=== PATIENT | male | born 1990 | race Caucasian/White ===

== ENCOUNTER → 2021-01-26 14:40 | Outpatient (CLI) | payer OTHER, SELFPAY | PROVIDERS: Visit Provider Nurse Practitioner Family | DX: Z20.822 Contact with and (suspected) exposure to COVID-19 (principal); U07.1 COVID-19 | CPT/HCPCS: U0003 ==

== ENCOUNTER → 2021-07-04 11:50 | Outpatient (CLI) | payer OTHER, SELFPAY ==
[2021-07-05 09:31] LABS: Covid-19 Nasal PCR Sendout Lex NOT DETECTED
== END ==
PROVIDERS: Visit Provider Nurse Practitioner
DX: Z20.822 Contact with and (suspected) exposure to COVID-19 (principal)
CPT/HCPCS: C9803; U0004; U0005

== ENCOUNTER 2022-01-26 15:07 | Emergency (ER) | payer OTHER, SELFPAY ==
[2022-01-26 15:51] VITALS: BP 142/96; PULSE 87; RESP 15; TEMP 36.9; O2SAT 97; BMI 28.8
--- NOTE | 2022-01-26 16:13 | EXP.UTC ---
Discharge Plan Disposition Patient Disposition: Home, Self-Care Condition: Good Prescriptions Prescriptions: New azithromycin [Zithromax Z-Gabriel] 250 mg tablet See Rx Instructions .ROUTE .COMPLEX Qty: 6 0RF Rx Instructions: For 250 mg dose pack: take 500 mg today (day 1), then 250 mg for 4 days (days 2-5) prednisone 20 mg tablet 20 mg PO BID Qty: 10 0RF albuterol sulfate 90 mcg/actuation HFA aerosol inhaler 2 inh inhalation Q6H PRN (Reason: shortness of breath or wheezing) Qty: 8.5 0RF dextromethorphan-guaifenesin [Mucinex DM] 60-1,200 mg tablet extended release 12 hr 1 tab PO DAILY Qty: 20 0RF No Action albuterol sulfate 90 mcg/actuation HFA aerosol inhaler 2 puff INHALATION Q6H PRN (Reason: bronchitis) 7 Days Qty: 6.7 0RF Rx Instructions: administer with spacer Referrals Follow up/Referrals: Provider,Referral, MD [Primary Care Provider] - See instructions Activity Restrictions/Add. Instructions Additional Instructions/Restrictions: You have been tested for COVID19. Please isolate yourself as if you are positive until test results received. Current CDC guidelines are quarantine X 5 days from onset of symptoms, with an additional 5 days of mask wearing at all times. If you have difficulty breathing, signs of dehydration, etc please seek treatment at ER. Clinical Impressions Clinical Impression: Exposure to 2019 novel coronavirus Stand Alone Forms Stand Alone Forms: Work/School Release Discharge ED Provider[place] Kindra Ballesteros [facility] [place] Stated complaint: covid test,LANE Fever Mode of Arrival: Ambulatory Source of Information: Patient Time Seen by Provider: 01/26/22 16:23 Description of Symptoms (Recalled from Triage Doc. by RN): pt comes in for covid test. symptoms began 2 days ago and include headache, shortness of breath, congestion. HEENT Symptoms (Recalled from RN notes): Yes Resp Symptoms (Recalled from RN notes): Yes Skin Symptoms (Recalled from RN notes): No MS Symptoms (Recalled from RN notes): No Functional Status (Recalled from RN notes): n/a History of Present Illness Provider Complaint: Headache, shortness of breath, chest tightness, cough, congestions X 2 days. Fever last night. No vomiting or diarrhea. Onset (ago): day(s) Location: chest Severity: moderate Relieving factors: none Exacerbating factors: none Associated symptoms: cough, fever/chills, headaches and malaise Treatments prior to arrival: NSAID Related Data Previous Rx's Medication Instructions Recorded albuterol sulfate 90 mcg/actuation 2 puff inhalation Q6H PRN 11/10/18 aerosol inhaler bronchitis 7 days #6.7 grams albuterol sulfate 90 mcg/actuation 2 inh inhalation Q6H PRN shortness 01/26/22 aerosol inhaler of breath or wheezing #8.5 grams azithromycin 250 mg tablet See Rx Instructions PO .COMPLEX #6 01/26/22 (Zithromax Z-Gabriel) tabs dextromethorphan-guaifenesin ER 60 1 tab PO DAILY #20 tabs 01/26/22 mg-1,200 mg tab,extend release,12hr (Mucinex DM) prednisone 20 mg tablet 20 mg PO BID #10 tabs 01/26/22 Allergies Allergy/AdvReac Type Severity Reaction Status Date / Time No Known Allergies Allergy Verified 01/26/22 15:41 Worker's Comp Is this a Worker's Comp case?: No PFSH PFSH Social History Smoking Status: Former smoker alcohol intake: never substance use type: denies use current occupational status: employed household members: family housing: house ROS Obtained: Yes All systems reviewed & no additional complaints except as documented Constitutional Constitutional: Reports fever(s) and Reports headache(s) ENT Ears, Nose, Mouth, and Throat: Reports headache(s) and Reports nasal congestion Respiratory Respiratory: Reports chest congestion and Reports cough Neurologic Neurologic: Reports headache(s) Physical Exam General General appearance: alert and in no apparent distress Head Head exam
[2022-01-26 16:38] VITALS: BP 142/96; PULSE 87; RESP 15; TEMP 36.9
== END 2022-01-26 16:39 | disposition home or self-care (01) ==
PROVIDERS: Emergency Provider Physician Assistant
DX: Z20.822 Contact with and (suspected) exposure to COVID-19 (principal); R50.9 Fever, unspecified; R51.9 Headache, unspecified; R06.02 Shortness of breath; R09.89 Other specified symptoms and signs involving the circulatory and respiratory systems; R05.9 Cough, unspecified
CPT/HCPCS: 99212; C9803; G0463; U0003; U0005

== ENCOUNTER → 2022-12-26 23:18 | Outpatient (CLI) | payer OTHER, SELFPAY ==
[2022-12-26 18:37] LABS: Chloride 102 mmol/L (98-107); Potassium 4.2 mmoL/L (3.5-5.1); Sodium 139 mmol/L (136-145)
[2022-12-26 18:39] LABS: Alanine Aminotransferase 54 U/L (12-78); Aspartate Amino Transferase 36 U/L (17-59); Blood Urea Nitrogen 17 mg/dl (9-20); Estimated Glomerular Filt Rate 97 ml/min (>60); GFR (African American) 118 ML/MIN (>60)
[2022-12-26 18:40] LABS: Albumin Level 4.8 g/dl (3.5-5.0); Albumin/Globulin Ratio 1.7 (1.1-1.8); Alkaline Phosphatase 67 U/L (38-126); Anion Gap 11.2 mEq/L (5-15); Basophils % 0.7 % (0.1-2.0); Bilirubin,Total 0.8 mg/dl (0.2-1.3); Calcium 10.3 mg/dl (8.4-10.2); Carbon Dioxide 30 mmol/L (22.0-30.0); Cholesterol 222 mg/dl (140-200); Eosinophils # 0.2 K/mm3 (0.0-0.4); Eosinophils % 3.1 % (0.1-12.0); Globulin 2.9 g/dL (1.3-3.2); Glucose 86 mg/dl (74-100); HDL Cholesterol 44 mg/dl (40-60); Hematocrit 48.7 % (42.0-52.0); Hemoglobin 15.5 g/dL (14.1-18.0); Lymphocytes # 1.7 K/mm3 (0.7-4.5); Lymphocytes % 29.1 % (10-50); Mean Corpuscular HGB Conc 31.8 g/dL (31.8-35.4); Mean Corpuscular Hemoglobin 29.3 pg (27.0-31.2); Mean Corpuscular Volume 91.9 fl (80-94); Mean Platelet Volume 8.5 fl (7.4-10.4); Monocytes # 0.4 K/mm3 (0.1-1.0); Monocytes % 7.4 % (1.7-9.3); Neutrophils # 3.5 K/mm3 (1.8-7.8); Neutrophils % 59.7 % (37.0-80.0); Platelet Count 315 K/mm3 (142-424); Red Cell Distribution Width 12.9 % (11.5-17.5); Total Protein,Serum 7.7 g/dl (6.3-8.2); Triglycerides 236 mg/dl (30-150); VLDL Cholesterol 47 mg/dL (0-40); White Blood Count 5.8 K/mm3 (4.8-10.8)
[2022-12-26 18:51] LABS: Direct LDL Cholesterol 124.21 mg/dL (100-129)
[2022-12-26 18:58] LABS: 25-OH Vitamin D, Total 24.9 ng/mL (30-100)
[2022-12-26 19:10] LABS: Thyroid Stimulating Hormone 0.91 uIU/mL (0.465-4.68)
== END ==
LOC: LAB.DROPOF 23:18
PROVIDERS: PCP Nurse Practitioner Family; Visit Provider Nurse Practitioner Family
DX: R07.9 Chest pain, unspecified (principal); R06.02 Shortness of breath; E55.9 Vitamin D deficiency, unspecified; Z79.899 Other long term (current) drug therapy
CPT/HCPCS: 80053; 80061; 82306; 84443; 85025

== ENCOUNTER 2023-10-08 21:51 | Emergency (ER) | payer OTHER, SELFPAY ==
[2023-10-08 21:52] VITALS: BP 158/98; PULSE 92; RESP 18; TEMP 36.8; O2SAT 98; BMI 28.7
--- NOTE | 2023-10-08 22:11 | ECG_ITS ---
APPROVED REPORT Exam: Resting ECG HR:86 bpm ECG Measurements Heart Rate 86 AXES DE 136 P 27 QRSd 96 QRS 62 QT 344 T 40 QTc 388 Conclusion SINUS RHYTHM Electronically signed by : SALVATORE HERRERA, 10/08/2023 23:17:32
[2023-10-08 22:30] VITALS: BP 131/71; PULSE 94; RESP 21; O2SAT 97
--- NOTE | 2023-10-08 22:33 | ED_ITS ---
Discharge Plan Disposition Patient Disposition: Home, Self-Care Condition: Good Prescriptions Prescriptions: No Action Vraylar 1.5 mg capsule 1.5 mg PO DAILY Qty: 30 2RF Referrals Follow up/Referrals: Alec Pacheco APRN [Primary Care Provider] - See instructions Garret Brown MD [Staff Physician] - See instructions Activity Restrictions/Add. Instructions Additional Instructions/Restrictions: Please follow-up with your PCP as needed. I referred you to cardiology although he did not have a serious or life-threatening condition today further evaluation as an outpatient is certainly appropriate given your concerns. Return to the ER as needed for any worsening signs or symptoms. Clinical Impressions Clinical Impression: Isolated premature ventricular contractions, RADHA (generalized anxiety disorder) Discharge ED Provider: Fransisco Orr General Adult HPI <JOSE Lopez - Last Filed: 10/08/23 23:20> General Chief complaint: Arrhythmia/Palpitations Stated complaint: heart beat fluxuating Time Seen by Provider: 10/08/23 22:33 Mode of Arrival: Ambulatory Source of Information: Patient Limitations: No Limitations Description of Symptoms (Recalled from ER Triage Doc. by RN): Patient reports chest pressure that feels like a gas bubble that started sometime today. He's unable to specify a time of onset. Patient reports he can lift his right arm and cause it to happen on demand. He states that he feels as though his heart stops a moment, then beats very hard . Patient reports that he sometimes has palpitations because he has really bad anxiety . Patient denies nausea, vomiting, lightheadedness. History of Present Illness HPI narrative: Patient presents for evaluation of palpitations. Patient states that he was taking a nap on the couch awoke and sat up and felt a palpitation in his chest and then strain sensation is never felt before. He felt like it was a thud patient has had several episodes since that he states is possible related to raising his arm or standing up. He denies chest pain fever chills hemoptysis hematochezia melena nausea vomit diarrhea. Patient has a history of anxiety and is slightly triggered by the events of the evening. Related Data Previous Rx's Medication Instructions Recorded cariprazine 1.5 mg capsule 1.5 mg PO DAILY #30 caps 12/26/22 (Vraylar) Allergies Allergy/AdvReac Type Severity Reaction Status Date / Time No Known Allergies Allergy Verified 01/02/23 13:12 PFSH <JOSE Lopez - Last Filed: 10/08/23 23:20> [facility] Disclaimer: The information contained in this section may have been updated after the patient was seen, as this information can be updated by other users. Medical History (Updated 10/08/23 @ 23:18 by JOSE Lopez) Abnormal electrocardiogram [ECG] [EKG] Lightheaded Palpitations Social History Smoking Status: Former smoker tobacco type: cigarettes packs per day: 1 alcohol intake: never substance use type: denies use current occupational status: employed Travel in the last 8 weeks: None household members: family housing: house <JOSE Lopez - Last Filed: 10/08/23 23:20> ROS Obtained: Yes Systems reviewed as appropriate & no additional complaints except as documented Physical Exam <JOSE Lopez - Last Filed: 10/08/23 23:20> General General appearance: alert and in no apparent distress Respiratory Respiratory exam: Present normal lung sounds bilaterally Cardiovascular Cardiovascular exam: Present regular rate, normal rhythm, normal heart sounds, +S1 and +S2 Extremities Exam Extremities exam: Present normal inspection Back Exam Back exam: Present normal inspection Neurological Exam Neurological exam: Present alert, oriented X3 and CN II-XII intact Psychiatric Psychiatric exam: Present normal affect and normal mood Skin Skin exam: Present warm, dry and normal color Medical Decision Making <JOSE Lopez - Last Filed: 10/08/23 23:20> Medical Records Medical records reviewed: Yes I reviewed the patient's medical records. Zach Inquiry Pt receiving controlled substance: No Vital Signs: 10/08/23 21:52 10/08/23 22:30 10/08/23 23:00 Temperature 98.3 F Temperature Source Oral Pulse Rate 94 H 93 H Pulse Rate [Left Radial] 92 H Respiratory Rate 18 21 20 Blood Pressure 131/71 128/84 Blood Pressure [Right Arm] 158/98 H Blood Pressure Mean 91 96 Blood Pressure Mean [Right Arm] 118 Blood Pressure Source [Right Arm] Automatic Cuff Blood Pressure Position [Right Arm] Sitting 02 Sat by Pulse Oximetry 98 97 95 Oxygen Delivery Method Room Air Room Air Room Air 10/08/23 23:28 Temperature 98.3 F Temperature Source Oral Pulse Rate 81 Pulse Rate [Left Radial] Respiratory Rate 20 Blood Pressure 121/76 Blood Pressure [Right Arm] Blood Pressure Mean Blood Pressure Mean [Right Arm] Blood Pressure Source [Right Arm] Blood Pressure Position [Right Arm] 02 Sat by Pulse Oximetry Oxygen Delivery Method Lab Data Lab results reviewed: Yes I reviewed the patient's lab results. Lab Results 10/08/23 22:34: WBC 6.8, RBC 4.83, Hgb 14.7, Hct 42.9, MCV 88.7, MCH 30.4, MCHC 34.2, RDW 13.8, Plt Count 305, MPV 7.6, Neut % (Auto) 55.7, Lymph % (Auto) 32.3, [place] % (Auto) 7.7, Eos % (Auto) 2.9, Baso % (Auto) 1.5, Neut # (Auto) 3.8, Lymph # (Auto) 2.2, [place] # (Auto) 0.5, Eos # (Auto) 0.2, Baso # (Auto) 0.1, Sodium 139, Potassium 3.7, Chloride 104, Carbon Dioxide 29, Anion Gap 9.7, BUN 21 H, Creatinine 1.10, Estimated Creat Clear 121, Estimated GFR 77, Est GFR ( Amer) 93, Glucose 97, Calcium 9.5, Magnesium 2.0, Total Bilirubin 0.7, AST 40, A LT 80 H, Alkaline Phosphatase 73, Troponin I < 0.01, Total Protein 7.0, Albumin 4.4, Globulin 2.6, Albumin/Globulin Ratio 1.7 10/08/23 22:34 10/08/23 22:34 Orders (Tests/Meds): ED MEDICATIONS Discontinued Medications Generic Name Dose Route Start Last Admin Trade Name Freq PRN Reason Stop Dose Admin Hydroxyzine Pamoate 50 mg 10/08/23 23:15 10/08/23 23:25 Hydroxyzine Pamoate 25mg Capsule PO 10/08/23 23:16 50 mg ONCE ONE Administration Magnesium Sulfate 2 gm in 50 mls @ 50 mls/hr 10/08/23 22:40 10/08/23 23:04 Magnesium Sulfate 2gm/50ml Premix IV 10/08/23 23:39 Not Given ONCE ONE ORDERS Category Date Time Status Chest XR -- portable [XR chest portable] Stat Exams 10/08/23 22:41 Taken CBC w/Auto Diff [Complete Blood Count Auto Diff] Stat Lab 10/08/23 22:34 Completed Comprehensive Metabolic Panel Stat Lab 10/08/23 22:34 Completed Magnesium Stat Lab 10/08/23 22:34 Completed Troponin I Stat Lab 10/08/23 22:34 Completed HEART Score History (anamnesis): Slightly suspicious ECG: Normal Age: <45 years Risk factors: 1-2 risk factors Medical Decision Narrative: In summary patient is a 33-year-old female who presents to the emergency department for evaluation of palpitation. Patient is hemodynamically stable upon arrival, afebrile. Physical exam is unremarkable and nonfocal.. Differential diagnosis includes arrhythmia versus PVC versus anxiety versus gastritis versus ACS etc. Initial workup will be conducted with hematologic labs twelve-lead EKG chest x-ray. Initial interventions include Toradol Tylenol Vistaril. Initial workup reviewed by me that shows his hematologic labs are nonactionable and chest x-ray shows no acute process.. Upon repeat evaluation was able to reproduce what the patient was feeling while on the bedside monitor which showed 1 or 2 isolated PVCs that were nonsustained.. Given this appropriate for discharge with referral to cardiology in outpatient for further possible workup although this seems benign patient is supportive of the idea. I have also highly encouraged the patient to consider establishing care with a mental health provider for both medication therapy as well as talk therapy. Patient will consider. <Fransisco Orr MD - Last Filed: 10/08/23 23:41> Vital Signs: 10/08/23 21:52 10/08/23 22:30 10/08/23 23:00 Temperature 98.3 F Temperature Source Oral Pulse Rate 94 H 93 H Pulse Rate [Left Radial] 92 H Respiratory Rate 18 21 20 Blood Pressure 131/71 128/84 Blood Pressure [Right Arm] 158/98 H Blood Pressure Mean 91 96 Blood Pressure Mean [Right Arm] 118 Blood Pressure Source [Right Arm] Automatic Cuff Blood Pressure Position [Right Arm] Sitting 02 Sat by Pulse Oximetry 98 97 95 Oxygen Delivery Method Room Air Room Air Room Air 10/08/23 23:28 Temperature 98.3 F Temperature Source Oral Pulse Rate 81 Pulse Rate [Left Radial] Respiratory Rate 20 Blood Pressure 121/76 Blood Pressure [Right Arm] Blood Pressure Mean Blood Pressure Mean [Right Arm] Blood Pressure Source [Right Arm] Blood Pressure Position [Right Arm] 02 Sat by Pulse Oximetry Oxygen Delivery Method Lab Data Lab Results 10/08/23 22:34: WBC 6.8, RBC 4.83, Hgb 14.7, Hct 42.9, MCV 88.7, MCH 30.4, MCHC 34.2, RDW 13.8, Plt Count 305, MPV 7.6, Neut % (Auto) 55.7, Lymph % (Auto) 32.3, [place] % (Auto) 7.7, Eos % (Auto) 2.9, Baso % (Auto) 1.5, Neut # (Auto) 3.8, Lymph # (Auto) 2.2, [place] # (Auto) 0.5, Eos # (Auto) 0.2, Baso # (Auto) 0.1, Sodium 139, Potassium 3.7, Chloride 104, Carbon Dioxide 29, Anion Gap 9.7, BUN 21 H, Creatinine 1.10, Estimated Creat Clear 121, Estimated GFR 77, Est GFR ( Amer) 93, Glucose 97, Calcium 9.5, Magnesium 2.0, Total Bilirubin 0.7, AST 40, A LT 80 H, Alkaline Phosphatase 73, Troponin I < 0.01, Total Protein 7.0, Albumin 4.4, Globulin 2.6, Albumin/Globulin Ratio 1.7 Orders (Tests/Meds): ED MEDICATIONS Discontinued Medications Generic Name Dose Route Start Last Admin Trade Name Freq PRN Reason Stop Dose Admin Hydroxyzine Pamoate 50 mg 10/08/23 23:15 10/08/23 23:25 Hydroxyzine Pamoate 25mg Capsule PO 10/08/23 23:16 50 mg ONCE ONE Administration Magnesium Sulfate 2 gm in 50 mls @ 50 mls/hr 10/08/23 22:40 10/08/23 23:04 Magnesium Sulfate 2gm/50ml Premix IV 10/08/23 23:39 Not Given ONCE ONE ORDERS Category Date Time Status Chest XR -- portable [XR chest portable] Stat Exams 10/08/23 22:41 Taken CBC w/Auto Diff [Complete Blood Count Auto Diff] Stat Lab 10/08/23 22:34 Completed Comprehensive Metabolic Panel Stat Lab 10/08/23 22:34 Completed Magnesium Stat Lab 10/08/23 22:34 Completed Troponin I Stat Lab 10/08/23 22:34 Completed HEART Score Troponin: </= normal limit HEART Score: 1 Medical Decision Narrative: In summary patient is a 33-year-old female who presents to the emergency department for evaluation of palpitation. Patient is hemodynamically stable upon arrival, afebrile. Physical exam is unremarkable and nonfocal.. Differential diagnosis includes arrhythmia versus PVC versus anxiety versus gastritis versus ACS etc. Initial workup will be conducted with hematologic labs twelve-lead EKG chest x-ray. Initial interventions include Toradol Tylenol Vistaril. Initial workup reviewed by me that shows his hematologic labs are nonactionable and chest x-ray shows no acute process.. Upon repeat evaluation was able to reproduce what the patient was feeling while on the bedside monitor which showed 1 or 2 isolated PVCs that were nonsustained.. Given this appropriate for discharge with referral to cardiology in outpatient for further possible workup although this seems benign patient is supportive of the idea. I have also highly encouraged the patient to consider establishing care with a mental health provider for both medication therapy as well as talk therapy. Patient will consider. I was consulted by the KALYAN, and we discussed the complexity of the problems being addressed. I approved the treatment and management plan for this patient?s care in the Emergency Department, thus performing a substantive portion of the medical decision making. Fransisco Orr MD Critical Care <JOSE Lopez - Last Filed: 10/08/23 23:20> Critical Care Time Critical Care Time: No
--- NOTE | 2023-10-08 22:41 | XR_ITS ---
PROCEDURE INFORMATION: Exam: XR Chest Exam date and time: 10/08/2023 10:52 PM Age: 33 years old Clinical indication: Other: Palpitations TECHNIQUE: Imaging protocol: Radiologic exam of the chest. Views: 1 view. COMPARISON: No relevant prior studies available. FINDINGS: Lungs: No consolidation. Pleural spaces: No pleural effusion. No pneumothorax. Heart/Mediastinum: No cardiomegaly. Bones/joints: Unremarkable. IMPRESSION: No acute pulmonary findings.
[2023-10-08 22:47] LABS: Basophils # 0.1 K/mm3 (0-0.2); Basophils % 1.5 % (0.1-2.0); Eosinophils # 0.2 K/mm3 (0.0-0.4); Eosinophils % 2.9 % (0.1-12.0); Hematocrit 42.9 % (42.0-52.0); Hemoglobin 14.7 g/dL (14.1-18.0); Lymphocytes # 2.2 K/mm3 (0.7-4.5); Lymphocytes % 32.3 % (10-50); Mean Corpuscular HGB Conc 34.2 g/dL (31.8-35.4); Mean Corpuscular Hemoglobin 30.4 pg (27.0-31.2); Mean Corpuscular Volume 88.7 fl (80-94); Mean Platelet Volume 7.6 fl (7.4-10.4); Monocytes # 0.5 K/mm3 (0.1-1.0); Monocytes % 7.7 % (1.7-9.3); Neutrophils # 3.8 K/mm3 (1.8-7.8); Neutrophils % 55.7 % (37.0-80.0); Platelet Count 305 K/mm3 (142-424); Red Blood Count 4.83 M/mm3 (4.60-6.20); Red Cell Distribution Width 13.8 % (11.5-17.5); White Blood Count 6.8 K/mm3 (4.8-10.8)
[2023-10-08 22:57] LABS: Chloride 104 mmol/L (98-107)
[2023-10-08 22:58] LABS: Potassium 3.7 mmoL/L (3.5-5.1); Sodium 139 mmol/L (136-145)
[2023-10-08 23:00] VITALS: BP 128/84; PULSE 93; RESP 20; O2SAT 95
[2023-10-08 23:00] LABS: Alanine Aminotransferase 80 U/L (12-78); Aspartate Amino Transferase 40 U/L (17-59); Blood Urea Nitrogen 21 mg/dl (9-20); Creatinine Clearance Estimated 121 mL/min (50-200); Estimated Glomerular Filt Rate 77 ml/min (>60); GFR (African American) 93 ML/MIN (>60)
[2023-10-08 23:01] LABS: Albumin Level 4.4 g/dl (3.5-5.0); Albumin/Globulin Ratio 1.7 (1.1-1.8); Alkaline Phosphatase 73 U/L (38-126); Anion Gap 9.7 mEq/L (5-15); Bilirubin,Total 0.7 mg/dl (0.2-1.3); Calcium 9.5 mg/dl (8.4-10.2); Carbon Dioxide 29 mmol/L (22.0-30.0); Globulin 2.6 g/dL (1.3-3.2); Glucose 97 mg/dl (74-100)
--- NOTE | 2023-10-08 23:04 | PC.NURSE ---
Discussed magnesium order with provider, magnesium lab 2.0. Provider states to not give additional magnesium at this time.
[2023-10-08 23:20] LABS: Troponin I < 0.01 ng/ml (0.00-0.034)
[2023-10-08] MEDS: hydrOXYzine pamoate 25MG CAPSULE 50 MG PO (23:25)
[2023-10-08 23:28] VITALS: BP 121/76; PULSE 81; RESP 20; TEMP 36.8; O2SAT 96
== END 2023-10-08 23:29 | disposition home or self-care (01) ==
PROVIDERS: Physician Assistant; Emergency Provider Emergency Medicine; PCP Nurse Practitioner Family
DX: I49.3 Ventricular premature depolarization (principal); F41.1 Generalized anxiety disorder
CPT/HCPCS: 71045; 80053; 83735; 84484; 85025; 93005; 96365; 99284